=== PATIENT | female | born 1975 | race Caucasian/White ===

== ENCOUNTER 2017-10-30 17:00 | Outpatient (CLI) | payer OTHER | END 2017-10-30 17:01 | disposition home or self-care (01) | LOC: LAB 17:00 | PROVIDERS: ATTEND Family Medicine | DX: R19.7 Diarrhea, unspecified (principal) | CPT/HCPCS: 81599; 83630; 87045; 87046; 87177; 87209; 87493 ==

== ENCOUNTER 2022-09-07 10:54 | Outpatient (CLI) | payer OTHER ==
--- NOTE | 2022-09-08 12:43 | Mammography Report ---
UNILATERAL RIGHT DIGITAL DIAGNOSTIC MAMMOGRAM 3D/2D WITH SPOT COMPRESSION: 09/07/2022 CLINICAL: Patient returns today to evaluate multiple focal asymmetries in the right breast. Comparison is made to exams dated: 11/11/2014 mammogram and 08/19/2022 mammogram - [facility]. There are scattered areas of fibroglandular density in the right breast (category b / 25%-50% glandul ar tissue). There is an oval asymmetry with a circumscribed margin in the right breast at 7 o'clock anterior dept h. There also is an asymmetry with a circumscribed margin in the right breast central to the nipple midd le depth. Additionally, there is a possible asymmetry in the right breast at 6 o'clock posterior depth. This i s not seen in additional views. No other significant masses or calcifications are seen in the breast. IMPRESSION: INCOMPLETE: NEEDS ADDITIONAL IMAGING EVALUATION The oval asymmetry in the right breast at 7 o'clock anterior depth resembles a cyst and is indetermin ate. The asymmetry in the right breast central to the nipple middle depth resembles a cyst and is indeterm inate. A targeted ultrasound is recommended and will immediately follow. The possible asymmetry in the right breast at 6 o'clock posterior depth is consistent with fibrogland ular tissue and is benign. Based on the Tyrer Cuzick model (a risk assessment model) the patients lifetime risk is 8.1% and her 10 year risk is 1.7%. According to the ACR, ACS, and NCCN guidelines, an annual breast MRI exam yanely g with mammogram is recommended if the patients lifetime risk is 20% or greater. This exam was interpreted at Station ID: [id number]. NOTE: For mammograms, a report in lay terms will be sent to the patient. Approximately 15% of breast malignancies will not be visualized mammographically. In the management of a palpable breast mass, a negative mammogram must not discourage biopsy of a clinically suspicious lesion. Electronically Signed By: Tom Osorio M.D. [facility] [place]/:09/07/2022 11:46:16 ACR BI-RADS Category 0: Incomplete 3340F PARENCHYMAL PATTERN: (A) - The breast(s) demonstrate(s) scattered fibroglandular densities. BI-RADS CATEGORY: (0) - 0 Ultrasound [id number] Immediate follow-up LATERALITY: (B)
--- NOTE | 2022-09-08 12:43 | Ultrasound Report ---
LIMITED ULTRASOUND OF RIGHT BREAST: 09/07/2022 CLINICAL: Patient returns today to evaluate focal asymmetries in the right breast. Comparison is made to exams dated: 09/07/2022 mammogram, 08/19/2022 mammogram, and 11/11/2014 mammogram - [facility]. Color flow and real-time ultrasound of the right breast 6-7 o'clock, and retroareolar regions were pe rformed. Parsons scale images of the real-time examination were reviewed. There is a 0.8 cm x 0.6 cm x 0.3 cm oval cyst with a septated internal wall in the right breast centr al to the nipple 6 o'clock posterior depth. This oval cyst is hypoechoic. This correlates with mamm ography findings. Color flow imaging demonstrates that there is no vascularity present. There also is a benign 1.6 cm simple cyst in the right breast at 7 o'clock anterior depth 4 cm from t he nipple. This correlates with mammography findings. IMPRESSION: PROBABLY BENIGN 1) The 0.8 cm cyst in the right breast at central to the nipple 6 o'clock posterior depth is consiste nt with a complicated cyst and is probably benign. -A follow-up ultrasound in 6 months is recommended. 2) The 1.6 cm simple cyst in the right breast at 7 o'clock anterior depth is benign. Exam findings were conveyed to the patient. This exam was interpreted at Station ID: [id number]. Electronically Signed By: Tom Osorio M.D. [facility]/:09/07/2022 12:16:02 Ultrasound BI-RADS: 3 Probably benign BI-RADS CATEGORY: (3) - 3 Ultrasound [id number] 6 month follow-up LATERALITY: (B)
== END 2022-09-07 10:55 | disposition home or self-care (01) ==
LOC: DI 10:54
PROVIDERS: ATTEND Nurse Practitioner Family
DX: R92.8 Other abnormal and inconclusive findings on diagnostic imaging of breast (principal); N60.01 Solitary cyst of right breast

== ENCOUNTER 2022-10-27 07:44 | Emergency (ER) | payer OTHER ==
[2022-10-27] MEDS ORDERED: HYDROmorphone 1 MG/ML CARPUJECT IVP STA ×3 (08:03→09:32)
[2022-10-27] MEDS ORDERED: ONDANSETRON 4 MG/2 ML VIAL IVP STA (08:03)
[2022-10-27] MEDS ORDERED: SODIUM CHLORIDE 0.9% 1,000 ML IV STA (08:03)
--- NOTE | 2022-10-27 08:04 | ED Physician Documentation ---
PD HPI ABD PAIN - Stated complaint Stated Complaint: VOMITING/ABD PX - Chief complaint Chief Complaint: Abd Pain - History obtained from History obtained from: Patient - Additional information Additional information: 47-year-old woman with history of Crohn's, previously on Lialda but currently not on any meds for that. She has a history of an colonic resection with ileocolonic anastomosis in 2000. She also has had 4 C-sections, tubal ligation and has known incidental gallstones. She had a small bowel obstruction in 2010. She started develop central and upper abdominal pain last night associated with multiple episodes of vomiting. She has had some "ribbony" stools but no significant bowel output since this started. Denies fevers. 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 - Present Medications Home Medications: Ambulatory Orders Medication Instructions Recorded Confirmed No Known Home Medications 10/27/22 10/27/22 - Allergies Allergies/Adverse Reactions: Allergies Allergy/AdvReac Type Severity Reaction Status Date / Time morphine AdvReac Itching Verified 10/27/22 07:49 oxycodone HCl * AdvReac Dizziness Verified 10/27/22 07:49 [From OxyContin] PD ED PE NORMAL - Vitals Vital signs reviewed: Yes - General General: Alert and oriented X 3, Other (She appears quite uncomfortable) - Cardiac Cardiac: RRR, No murmur - Respiratory Respiratory: No respiratory distress, Clear bilaterally - Abdomen Abdomen: Other (Absent bowel sounds, modest diffuse tenderness without surgical signs) - Derm Derm: No rash - Neuro Neuro: Alert and oriented X 3, Normal speech Results - Vitals Vitals: Vital Signs - 24 hr 10/27/22 10/27/22 10/27/22 07:50 08:15 10:24 Temperature 36.4 C L 36.7 C Heart Rate 78 83 85 Respiratory 24 22 16 Rate Blood Pressure 127/55 L 104/56 L 121/82 H O2 Saturation 95 94 98 10/27/22 10/27/22 10/27/22 12:09 12:33 14:20 Temperature Heart Rate 88 Respiratory 15 20 16 Rate Blood Pressure 114/71 O2 Saturation 100 10/27/22 10/27/22 10/27/22 14:25 15:32 16:30 Temperature Heart Rate 78 78 Respiratory 16 16 16 Rate Blood Pressure 103/67 111/72 O2 Saturation 99 99 10/27/22 10/27/22 10/27/22 16:37 16:58 19:33 Temperature 37.1 C Heart Rate 72 Respiratory 16 16 16 Rate Blood Pressure 104/68 O2 Saturation 98 Oxygen O2 Source Room air - Labs Labs: Laboratory Tests 10/27/22 10/27/22 10/27/22 08:00 08:00 12:06 WBC 22.8 H RBC 4.87 Hgb 14.7 Hct 44.1 MCV 90.6 MCH 30.2 MCHC 33.3 RDW 13.4 Plt Count 286 MPV 12.2 H Neut # (Auto) 19.2 H Lymph # (Auto) 1.9 [place] # (Auto) 1.6 H Eos # (Auto) 0.0 Baso # (Auto) 0.1 Absolute Nucleated RBC 0.00 Nucleated RBC % 0.0 Manual Slide Review Indicated RBC Morph Micro Appear 1+ ANISOCYTOSIS Sodium 137 Potassium 4.1 Chloride 106 Carbon Dioxide 23 Anion Gap 8.0 BUN 11 Creatinine 0.7 Estimated GFR (MDRD) 89 Glucose 152 H Calcium 9.3 Total Bilirubin 0.7 AST 18 ALT 18 Alkaline Phosphatase 77 Total Protein 7.8 Albumin 4.0 Globulin 3.8 Albumin/Globulin Ratio 1.1 Lipase 32 Urine Color Urine Clarity Urine pH Ur Specific [place] Urine Protein Urine Glucose (UA) Urine Ketones Urine Occult Blood Urine Nitrite Urine Bilirubin Urine Urobilinogen Ur Leukocyte Esterase Ur Microscopic Review Urine Culture Comments Urine HCG, Qual SARS-CoV-2 (PCR) NOT DETECTED 10/27/22 14:20 WBC RBC Hgb Hct MCV MCH MCHC RDW Plt Count MPV Neut # (Auto) Lymph # (Auto) [place] # (Auto) Eos # (Auto) Baso # (Auto) Absolute Nucleated RBC Nucleated RBC % Manual Slide Review RBC Morph Micro Appear Sodium Potassium Chloride Carbon Dioxide Anion Gap BUN Creatinine Estimated GFR (MDRD) Glucose Calcium Total Bilirubin AST ALT Alkaline Phosphatase Total Protein Albumin Globulin Albumin/Globulin Ratio Lipase Urine Color YELLOW Urine Clarity CLEAR Urine pH 5.5 Ur Specific [place] 1.015 Urine Protein NEGATIVE Urine Glucose (UA) NEGATIVE Urine Ketones 15 H Urine Occult Blood TRACE-INTA Urine Nitrite NEGATIVE Urine Bilirubin NEGATIVE Urine Urobilinogen 0.2 (NORMAL) Ur Leukocyte Esterase NEGATIVE Ur Microscopic Review NOT INDICATED Urine Culture Comments NOT INDICATED Urine HCG, Qual NEGATIVE SARS-CoV-2 (PCR) - Rads (name of study) CT abdomen pelvis demonstrates small bowel obstruction and cholelithiasis. Transition not clearly identified. Relevant Findings:: Final report received, EMP independent interpretation of test PD Medical Decision Making - ED course Complexity details: reviewed results (CBC reviewed and notable for a white count of 22,000 with left shift. CMP reviewed and only notable for mild hyperglycemia at 152. CT as above.), considered differential (Most consistent with small bowel obstruction based on exam and known strictures and adhesions, but appendicitis, cholelithiasis, or other surgical emergency is of course on the differential.) ED course: 47-year-old woman with Crohn's presents with signs and symptoms consistent with small bowel obstruction proven on CT. She required a fair amount of medication for pain control and was kept NPO. Looking at the size of her gastrum and lack of active vomiting in the department I do not think she acutely needs an NG tube. Case discussed by phone with Dr. Nithya Ngo, our on-call surgeon at 9:50 AM who recommends transfer to a facility capable of GI consultation given her active Crohn's. Subsequently we were notified by [facility] that they have no open beds. We called [facility] and they are optimistic that they will be able to take her in transfer. Subsequently I spoke with Dr. Pearson at [facility]. They do not have beds at their usual facilities, [facility] or [facility] and he was okay with her going to [facility]. Patient had a specific concern about interhospital transport costs but Dr. Pearson did not think of any reason it should not be covered since she is going to higher level of care. I spoke with MARY CARMEN Maza, general surgery at [facility] and presented the case. Subsequently she spoke with her attending Dr. Guadalupe and their GI Dr. Bravo who did not feel she needed to be transferred as tx is simply bowl rest, gastrograffin challenge. Subsequently I was able to discuss the case by phone with Dr. Ngo again who notes that the patient would be expected to be in this critical access hospital for greater than 96 hours and asked that I consult [facility] again. I spoke with MARY CARMEN Maza again regarding the 96-hour rule and she said it was okay to send the patient to [facility] but under the care of the hospitalist. Update 5:30 PM, patient is pain-free. Still does not have bowel sounds. Discussed again with Dr. Ngo who recommends scheduled dosing of IV glucocorticoids and Cipro and Flagyl which were ordered. If patient were here tomorrow a Gastrografin challenge would be appropriate. S/O to overnight EDMD at pending hopeful acceptance by tertiary facility. Departure - Departure Disposition: 02 Transfer Acute Care Hosp Clinical Impression: SBO (small bowel obstruction) Crohn disease Qualifiers: Gastrointestinal tract location: small intestine Digestive disease complication type: with intestinal obstruction Qualified Code(s): K50.012 - Crohn's disease of small intestine with intestinal obstruction Condition: Serious
[2022-10-27 08:06] LABS: BASOPHILS # (AUTO) 0.1 10^3/uL (0.0-0.1); BASOPHILS % (AUTO) 0.3 %; HCT - HEMATOCRIT 44.1 % (37.0-47.0); HGB - HEMOGLOBIN 14.7 g/dL (12.0-16.0); LYMPHOCYTES # (AUTO) 1.9 10^3/uL (1.5-3.5); LYMPHOCYTES % (AUTO) 8.2 %; MEAN CORPUSCULAR HEMOGLOBIN 30.2 pg (27.0-31.0); MEAN CORPUSCULAR HGB CONC 33.3 g/dL (32.0-36.0); MEAN CORPUSCULAR VOLUME 90.6 fL (81.0-99.0); MEAN PLATELET VOLUME 12.2 fL (7.9-10.8); MONOCYTES # (AUTO) 1.6 10^3/uL (0.0-1.0); MONOCYTES % (AUTO) 6.9 %; NEUTROPHILS # (AUTO) 19.2 10^3/uL (1.5-6.6); NEUTROPHILS % (AUTO) 84.1 %; PLT - PLATELET COUNT 286 10^3/uL (130-450); RED BLOOD COUNT 4.87 10^6/uL (4.20-5.40); RED CELL DISTRIBUTION WIDTH 13.4 % (12.0-15.0); WHITE BLOOD COUNT 22.8 x10^3/uL (4.8-10.8)
[2022-10-27 08:08] LABS: SLIDE REVIEW? Indicated
[2022-10-27 08:20] LABS: ALBUMIN/GLOBULIN RATIO 1.1 (1.0-2.2); BILIRUBIN,TOTAL 0.7 mg/dL (0.2-1.0); CALCIUM 9.3 mg/dL (8.5-10.3); CREATININE 0.7 mg/dL (0.4-1.0); POTASSIUM 4.1 mmol/L (3.5-5.0); TOTAL PROTEIN 7.8 g/dL (6.7-8.2)
[2022-10-27] MEDS ORDERED: iohexoL-300 100 ML VIAL ONE (08:28)
[2022-10-27 08:33] LABS: RBC MORPHOLOGY (MULTIPLE) 1+ ANISOCYTOSIS (NORMAL)
[2022-10-27] MEDS ORDERED: iohexoL-300 100 ML VIAL IVP ONE (09:13)
--- NOTE | 2022-10-27 09:13 | CT Report ---
PROCEDURE: ABDOMEN/PELVIS W INDICATIONS: iv only, abd pain, ?sbo CONTRAST: 100ml Omnipaque 300 TECHNIQUE: After the administration of IV contrast, 5 mm thick sections acquired from the diaphragms to the symp hysis. 5 mm thick coronal and sagittal reformats were acquired. For radiation dose reduction, the f ollowing was used: automated exposure control, adjustment of mA and/or kV according to patient size. COMPARISON: None. FINDINGS: Image quality: Excellent. ABDOMEN: Lung bases: Dependent atelectasis in posterior aspect of bilateral lung bases are seen. Heart size is normal. Solid organs: Liver and spleen are normal in size and enhancement. Gallbladder contains a calcified stone. No gross gallbladder wall thickening or pericholecystic fluid. Biliary system is non dilated . Pancreas enhances normally. No adrenal nodules. Kidneys demonstrate normal size and enhancement, without hydronephrosis. Peritoneum and bowel: Postsurgical changes are seen in right side of abdomen with multiple surgical c lips suggest clinical correlation. Fluid distended small bowel loops are noted throughout abdomen wit h a few air-fluid levels. Sonographic transition is not definitively identified. Colon loops are most ly decompressed. No abscess collection. No free fluid of free air. Nodes and vessels: No retroperitoneal or mesenteric adenopathy by size criteria. Aorta and inferior vena cava are normal in size. Miscellaneous: No ventral hernias. PELVIS: Genitourinary: Bladder wall thickness is normal. Miscellaneous: No inguinal hernias or adenopathy. Intrauterine device is seen in its central endome trial location. No gross abnormality is seen in bilateral adnexa. Bones: No suspicious bony lesions. No vertebral body compression fractures. IMPRESSION: 1. Finding is consistent with moderate to high-grade distal small bowel obstruction with zone of marquez sition not definitively identified and may be due to adhesion. No significant abnormal bowel wall thi ckening. No abscess collection. No free fluid of free air. 2. Postsurgical changes in right side of abdomen suggest clinical correlation. 3. Cholelithiasis without CT evidence of acute cholecystitis. Reviewed by: Omar Roberts MD on 10/27/2022 9:12 AM PDT Approved by: Omar Roberts MD on 10/27/2022 9:12 AM PDT Station ID: [id number]
[2022-10-27] MEDS ORDERED: METOCLOPRAMIDE 10 MG/2 ML VIAL IVP STA (09:32)
[2022-10-27] MEDS ORDERED: LACTATED RINGERS 1,000 ML IV STA ×2 (09:32→17:29)
[2022-10-27] MEDS ORDERED: methylPREDNISolone SUCCINATE 125 MG/2 ML VIAL IVP STA (09:32)
[2022-10-27 14:51] LABS: BILIRUBIN,URINE NEGATIVE (NEGATIVE); GLUCOSE, URINE (UA) NEGATIVE (NEGATIVE); KETONES,URINE (UA) 15 mg/dL (NEGATIVE); LEUKOCYTE ESTERASE, URINE NEGATIVE (NEGATIVE); NITRITE,URINE NEGATIVE (NEGATIVE); OCCULT BLOOD,URINE TRACE-INTA (NEGATIVE); PH,URINE 5.5 PH (5.0-7.5); PROTEIN,URINE NEGATIVE (NEGATIVE); UROBILINOGEN,URINE 0.2 (NORMAL) E.U./dL (NORMAL)
[2022-10-27 14:53] LABS: CLARITY,URINE CLEAR (CLEAR); HCG UR QUAL NEGATIVE
--- NOTE | 2022-10-27 20:38 | CONSULTATION NOTE ---
Referring Provider Name of Referring Provider:: ED provider (Deepthi) Consult Date: 10/27/22 Chief Complaint - Chief Complaint Chief Complaint: abdominal pain History of Present Illness - Admitted From Admitted From:: n/a - History Obtained From Records Reviewed: yes History obtained from: patient, chart, ED provider - History of Present Illness HPI Comment/Other: This is a 47-year-old with a history of Crohn's and previous ileocecectomy. She was on mesalamine for many years, but has not been taking it for the last four years except for about six months in 2019. She had a previous small bowel obstruction which resolved with conservative management. For the last several months, she has felt like "something is going on" in her abdomen and has scheduled an appointment with her GI. Her last CE was more than five years ago, and she did have some polyps at that time.She also reports that she was told that she had "some narrowing" at the time of that study though she does not know where the narrowing was and states no treatment was performed for the narrowing. Last night, the patient developed sharp, colicky, diffuse abdominal pain associated with nausea and multiple bouts of non bloody vomiting. She did have a small bowel movement this morning. She denies any blood in her stool. She denies any fevers or chills. This evening, she is feeling a little better. She denies nausea and has not vomited since presentation. Her pain is improving some. She has not had a bowel movement. 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, Tubal ligation Meds/Allgy - Home Medications Home Medications: Ambulatory Orders Medication Instructions Recorded Confirmed No Known Home Medications 10/27/22 10/27/22 - Allergies Allergies/Adverse Reactions: Allergies Allergy/AdvReac Type Severity Reaction Status Date / Time morphine AdvReac Itching Verified 10/27/22 07:49 oxycodone HCl * AdvReac Dizziness Verified 10/27/22 07:49 [From OxyContin] Review of Systems - Constitutional Constitutional: reports: Other (A complete 10 point review of symptoms is otherwise negative except for that noted in HPI and PMH.) Exam - Vital Signs Vital Signs: Vital Signs x48h Temp Pulse Resp BP Pulse Ox 10/27/22 19:33 37.1 C 72 16 104/68 98 10/27/22 16:58 16 10/27/22 16:37 16 10/27/22 16:30 78 16 111/72 99 10/27/22 15:32 16 10/27/22 14:25 78 16 103/67 99 10/27/22 14:20 16 - Physical Exam Comments/Other: GEN: No acute distress, appears younger than stated age, alert and oriented HEENT: NCAT, MMM, EOMI NEURO: CN II-XII grossly intact, no obvious focal deficits CV: RRR, no murmer appreciated PULM: Nonlabored on room air ABD: soft, with mild diffuse tenderness to palpation and mild distention, no rebound or guarding CIRCULATORY: no clubbing, cyanosis, or edema SKIN: no lesions appreciated LYMPH: no obvious lymphadenopathy MSK: 4/4 strength in all extremities PSYCH: Affect is appropriate Conclusion and Plan - Lab Results Laboratory Results 10/27/22 14:20: Urine Color YELLOW, Urine Clarity CLEAR, Urine pH 5.5, Ur Specific [place] 1.015, Urine Protein NEGATIVE, Urine Glucose (UA) NEGATIVE, Urine Ketones 15 H, Urine Occult Blood TRACE-INTA, Urine Nitrite NEGATIVE, Urine Bilirubin NEGATIVE, Urine Urobilinogen 0.2 (NORMAL), Ur Leukocyte Esterase NEGATIVE, Ur Microscopic Review NOT INDICATED, Urine Culture Comments NOT INDICATED, Urine HCG, Qual NEGATIVE 10/27/22 12:06: SARS-CoV-2 (PCR) NOT DETECTED 10/27/22 08:00: Sodium 137, Potassium 4.1, Chloride 106, Carbon Dioxide 23, Anion Gap 8.0, BUN 11, Creatinine 0.7, Estimated GFR (MDRD) 89, Glucose 152 H, Calcium 9.3, Total Bilirubin 0.7, AST 18, ALT 18, Alkaline Phosphatase 77, Total Protein 7.8, Albumin 4.0, Globulin 3.8, Albumin/Globulin Ratio 1.1, Lipase 32 10/27/22 08:00: WBC 22.8 H, RBC 4.87, Hgb 14.7, Hct 44.1, MCV 90.6, MCH 30.2, MCHC 33.3, RDW 13.4, Plt Count 286, MPV 12.2 H, Neut # (Auto) 19.2 H, Lymph # (Auto) 1.9, [place] # (Auto) 1.6 H, Eos # (Auto) 0.0, Baso # (Auto) 0.1, Absolute Nucleated RBC 0.00, Nucleated RBC % 0.0, Manual Slide Review Indicated, RBC Morph Micro Appear 1+ ANISOCYTOSIS - Diagnostic Imaging Results Diagnostic Imaging Results: positive: Final report reviewed Diagnostic Imaging Results Comments: CT scan consistent with a small bowel obstruction. There are no signs of free fluid or free air. There is no obvious transition point. I personally reviewed the images and report from the study. - Consultation Note Consultation Note: This is a 47-year-old female with: 1. Small bowel obstruction, likely secondary to Crohn's exacerbation The patient is not on any medication for her Crohn's at this time She does not have a clear transition point. I do not medically manage Crohn's patients but do feel this patient would benefit from the input of the fur glosser which is not available at our facility. I have also concerned the patient may have a prolonged hospital stay with a Crohn's exacerbation. For these reasons, I recommend transfer to a higher level of care. While the patient is in our emergency department awaiting transfer, I agree with the plan for IV steroids and antibiotics. The patient's symptoms do appear somewhat improved this evening compared to this morning. She has not required an NG tube. If she continues to improve overnight, I recommend a Gastrografin challenge tomorrow morning. If this demonstrates no obstruction, I recommend discharge with oral steroid taper and oral antibiotics for total of 10 days. I also strongly recommend close follow- up with her fur glosser to determine what if any maintenance medication she should be on. Thank you for consulting me in the care of this patient. I will continue to follow until the patient is discharged or transferred.
[2022-10-27] MEDS: CIPROFLOXACIN 400 MG/200 ML 400 MG/200 ML BAG IV SCH (21:10)
[2022-10-27] MEDS: HYDROmorphone 1 MG/ML CARPUJECT IVP PRN (21:48)
[2022-10-27] MEDS: metroNIDAZOLE 500 MG/100 ML 500 MG/100 ML BAG IV SCH (22:11)
[2022-10-28] MEDS ORDERED: SODIUM CHLORIDE 0.9% 1,000 ML IV STA (02:19)
[2022-10-28] MEDS ORDERED: ONDANSETRON 4 MG/2 ML VIAL IVP STA (02:44)
[2022-10-28] MEDS: HYDROmorphone 1 MG/ML CARPUJECT IVP PRN ×2 (02:51→06:28)
[2022-10-28] MEDS: metroNIDAZOLE 500 MG/100 ML 500 MG/100 ML BAG IV SCH ×2 (05:35→12:55)
--- NOTE | 2022-10-28 07:37 | PROVIDER PROGRESS NOTE ---
Subjective - Other Other Information/Narrative: Patient states she's had a "migraine headache" most of the night which has caused some nausea and two episodes of non bloody vomiting. Her abdominal pain persists, but continues to be improved from presentation. She is passing some flatus. No f/c, CP, SOA. Objective - Patient Data Reviewed Vital Signs: Yes Vital Signs: Vital Signs x48h Temp Pulse Resp BP Pulse Ox 10/28/22 07:00 83 16 111/73 99 10/28/22 05:00 90 16 98/63 97 10/28/22 03:34 37.1 C 92 16 101/59 L 94 10/28/22 02:22 91 16 111/67 99 10/28/22 00:08 15 Weight: Weight 10/26/22 10/27/22 10/28/22 23:59 23:59 23:59 Weight (kg) 88.451 kg Intake & Output: Intake and Output Totals x24h 10/26/22 10/27/22 10/28/22 23:59 23:59 23:59 Intake Total 3300 100 Balance 3300 100 - Lab Results Lab Results: 10/27/22 08:00 10/27/22 08:00 Other Lab Results: Lab Results x24hrs 10/27/22 10/27/22 10/27/22 Range/Units 14:20 12:06 08:00 WBC (4.8-10.8) x10^3/uL RBC (4.20-5.40) 10^6/uL Hgb (12.0-16.0) g/dL Hct (37.0-47.0) % MCV (81.0-99.0) fL MCH (27.0-31.0) pg MCHC (32.0-36.0) g/dL RDW (12.0-15.0) % Plt Count (130-450) 10^3/uL MPV (7.9-10.8) fL Neut # (Auto) (1.5-6.6) 10^3/uL Lymph # (Auto) (1.5-3.5) 10^3/uL Grimes # (Auto) (0.0-1.0) 10^3/uL Eos # (Auto) (0.0-0.7) 10^3/uL Baso # (Auto) (0.0-0.1) 10^3/uL Absolute Nucleated RBC x10^3/uL Nucleated RBC % /100WBC Manual Slide Review RBC Morph Micro Appear (NORMAL) Sodium 137 (135-145) mmol/L Potassium 4.1 (3.5-5.0) mmol/L Chloride 106 (101-111) mmol/L Carbon Dioxide 23 (21-32) mmol/L Anion Gap 8.0 (6-13) BUN 11 (6-20) mg/dL Creatinine 0.7 (0.4-1.0) mg/dL Estimated GFR (MDRD) 89 (>89) Glucose 152 H (70-100) mg/dL Calcium 9.3 (8.5-10.3) mg/dL Total Bilirubin 0.7 (0.2-1.0) mg/dL AST 18 (10-42) IU/L ALT 18 (10-60) IU/L Alkaline Phosphatase 77 (42-121) IU/L Total Protein 7.8 (6.7-8.2) g/dL Albumin 4.0 (3.2-5.5) g/dL Globulin 3.8 (2.1-4.2) g/dL Albumin/Globulin Ratio 1.1 (1.0-2.2) Lipase 32 (22-51) U/L Urine Color YELLOW Urine Clarity CLEAR (CLEAR) Urine pH 5.5 (5.0-7.5) PH Ur Specific [place] 1.015 (1.002-1.030) Urine Protein NEGATIVE (NEGATIVE) mg/dL Urine Glucose (UA) NEGATIVE (NEGATIVE) mg/dL Urine Ketones 15 H (NEGATIVE) mg/dL Urine Occult Blood TRACE-INTA (NEGATIVE) Urine Nitrite NEGATIVE (NEGATIVE) Urine Bilirubin NEGATIVE (NEGATIVE) Urine Urobilinogen 0.2 (NORMAL) (NORMAL) E.U./dL Ur Leukocyte Esterase NEGATIVE (NEGATIVE) Ur Microscopic Review NOT INDICATED Urine Culture Comments NOT INDICATED Urine HCG, Qual NEGATIVE SARS-CoV-2 (PCR) NOT DETECTED 10/27/22 Range/Units 08:00 WBC 22.8 H (4.8-10.8) x10^3/uL RBC 4.87 (4.20-5.40) 10^6/uL Hgb 14.7 (12.0-16.0) g/dL Hct 44.1 (37.0-47.0) % MCV 90.6 (81.0-99.0) fL MCH 30.2 (27.0-31.0) pg MCHC 33.3 (32.0-36.0) g/dL RDW 13.4 (12.0-15.0) % Plt Count 286 (130-450) 10^3/uL MPV 12.2 H (7.9-10.8) fL Neut # (Auto) 19.2 H (1.5-6.6) 10^3/uL Lymph # (Auto) 1.9 (1.5-3.5) 10^3/uL [place] # (Auto) 1.6 H (0.0-1.0) 10^3/uL Eos # (Auto) 0.0 (0.0-0.7) 10^3/uL Baso # (Auto) 0.1 (0.0-0.1) 10^3/uL Absolute Nucleated RBC 0.00 x10^3/uL Nucleated RBC % 0.0 /100WBC Manual Slide Review Indicated RBC Morph Micro Appear 1+ ANISOCYTOSIS (NORMAL) Sodium (135-145) mmol/L Potassium (3.5-5.0) mmol/L Chloride (101-111) mmol/L Carbon Dioxide (21-32) mmol/L Anion Gap (6-13) BUN (6-20) mg/dL Creatinine (0.4-1.0) mg/dL Estimated GFR (MDRD) (>89) Glucose (70-100) mg/dL Calcium (8.5-10.3) mg/dL Total Bilirubin (0.2-1.0) mg/dL AST (10-42) IU/L ALT (10-60) IU/L Alkaline Phosphatase (42-121) IU/L Total Protein (6.7-8.2) g/dL Albumin (3.2-5.5) g/dL Globulin (2.1-4.2) g/dL Albumin/Globulin Ratio (1.0-2.2) Lipase (22-51) U/L Urine Color Urine Clarity (CLEAR) Urine pH (5.0-7.5) PH Ur Specific [place] (1.002-1.030) Urine Protein (NEGATIVE) mg/dL Urine Glucose (UA) (NEGATIVE) mg/dL Urine Ketones (NEGATIVE) mg/dL Urine Occult Blood (NEGATIVE) Urine Nitrite (NEGATIVE) Urine Bilirubin (NEGATIVE) Urine Urobilinogen (NORMAL) E.U./dL Ur Leukocyte Esterase (NEGATIVE) Ur Microscopic Review Urine Culture Comments Urine HCG, Qual SARS-CoV-2 (PCR) - Imaging Results Imaging Results Comments: SBFT pending this AM - Current Medications Current Medications: Current Medications Generic Name Dose Route Start Last Admin Trade Name Freq PRN Reason Stop Dose Admin Hydromorphone HCl 1 mg 10/27/22 10:07 10/28/22 06:28 Hydromorphone 1 Mg/Ml Carpuject IVP 1 mg Q2H PRN Administration PAIN 5-7 Metronidazole 500 mg in 100 mls @ 100 mls/hr 10/27/22 22:00 10/28/22 06:32 Flagyl 500 Mg/100 Ml IV Infused TID KALANI Infusion Ciprofloxacin 400 mg in 200 mls @ 200 mls/hr 10/27/22 21:00 10/27/22 22:16 Cipro 400 Mg/200 Ml IV Infused BID KALANI Infusion Sodium Chloride 1,000 mls @ 150 mls/hr 10/28/22 02:19 10/28/22 02:28 Normal Saline 0.9% IV 10/28/22 08:58 150 mls/hr .Q6H40M STA Administration - Physical Exam General Appearance: positive: No acute distress, Alert Eyes Bilateral: positive: PERRL, EOMI ENT: positive: No signs of dehydration Neck: positive: Trachea midline Respiratory: positive: No respiratory distress Cardiovascular: positive: Regular rate & rhythm Abdomen: positive: Tenderness (diffuse, mild, no area of severe pain). negative: Nml bowel sounds (decreased), No distention (mildly distended), Guarding, Rebound Skin: positive: Color nml, No rash Extremities: positive: Non-tender, Full ROM Neurologic/Psychiatric: positive: Oriented x3 Impression/Plan - Problem List Problem List: This is a 47-year-old female with: 1. Small bowel obstruction, likely secondary to Crohn's exacerbation pain somewhat improved - n/v overnight, patient believes this is related to [place], rather than abdominal pain/obstruction - I have ordered a SBFT for this AM. If this demonstrates resolution of obstruction, recommend transition to PO steroids, abx and slow advancement of diet. Recommend very close follow up with GI. If she has significant gastric di stension on XR this AM, she may benefit from placement of an NG tube. - recommend repeating lab this AM - recommend continued IV steroids, abx for presumed crohn's exacerbation Thank you for consulting me in the care of this patient. I will continue to follow until the patient is discharged or transferred.
[2022-10-28] MEDS ORDERED: METOCLOPRAMIDE 10 MG/2 ML VIAL IVP STA (07:49)
[2022-10-28] MEDS ORDERED: DIATR MEGLU/DIATRIZOATE SODIUM 120 ML BOTTLE ONE (08:00)
[2022-10-28 08:03] LABS: BASOPHILS % (AUTO) 0.1 %; HCT - HEMATOCRIT 36.3 % (37.0-47.0); HGB - HEMOGLOBIN 12.1 g/dL (12.0-16.0); LYMPHOCYTES % (AUTO) 11.3 %; MEAN CORPUSCULAR HEMOGLOBIN 31.3 pg (27.0-31.0); MEAN CORPUSCULAR HGB CONC 33.3 g/dL (32.0-36.0); MEAN PLATELET VOLUME 12.3 fL (7.9-10.8); MONOCYTES % (AUTO) 9.7 %; NEUTROPHILS % (AUTO) 78.6 %; PLT - PLATELET COUNT 216 10^3/uL (130-450); RED BLOOD COUNT 3.86 10^6/uL (4.20-5.40); RED CELL DISTRIBUTION WIDTH 14.2 % (12.0-15.0); WHITE BLOOD COUNT 15.4 x10^3/uL (4.8-10.8)
[2022-10-28 08:09] LABS: CALCIUM 8.1 mg/dL (8.5-10.3); CREATININE 0.7 mg/dL (0.4-1.0); MAGNESIUM 1.7 mg/dL (1.7-2.8); POTASSIUM 3.6 mmol/L (3.5-5.0)
[2022-10-28 08:10] LABS: ABNORMAL LYMPHS % (MANUAL) 0 %
[2022-10-28 08:34] LABS: BAND NEUTROPHILS % (MANUAL) 3 %; LYMPHOCYTES # (MANUAL) 1.8 10^3/uL (1.5-3.5); LYMPHOCYTES % (MANUAL) 12 %; MONOCYTES # (MANUAL) 0.6 10^3/uL (0.0-1.0); NEUTROPHILS # (MANUAL) 12.9 10^3/uL (1.5-6.6)
[2022-10-28 08:35] LABS: DIFFERENTIAL COMMENT MANUAL DIFFERENTIAL; PLATELET ESTIMATE, MANUAL NORMAL (130-450,000) (NORMAL); PLATELET MORPHOLOGY NORMAL APPEARANCE (NORMAL); RBC MORPHOLOGY (MULTIPLE) NORMAL APPEARANCE (NORMAL)
[2022-10-28] MEDS ORDERED: methylPREDNISolone SUCCINATE 125 MG/2 ML VIAL IVP SCH (09:00)
[2022-10-28] MEDS ORDERED: DIATR MEGLU/DIATRIZOATE SODIUM 120 ML BOTTLE PO ONE (09:21)
[2022-10-28] MEDS: CIPROFLOXACIN 400 MG/200 ML 400 MG/200 ML BAG IV SCH (09:23)
--- NOTE | 2022-10-28 11:05 | ED Physician Documentation ---
ED Addendum - Addendum Addendum: 10/28/22 11:02 The patient has continued fluids as well as pain medication and antibiotics ordered on a regular basis. She was seen by Dr. Riggins this morning who felt the patient was somewhat improving. Small bowel follow-through was ordered by surgery. The patient is tolerating small sips. She did take the oral contrast. The small bowel follow-through will likely take several hours to see if it progresses through. If it does show passage through and there is not a full obstruction, then we can try to transition to oral fluids and medications. Meanwhile I will continue with attempting transfer for gastroenterology. Otherwise we will continue treating medically for a Crohn's exacerbation. The feeling from yesterday was the patient was not appropriate for our facility and hence the need for transfer for specialty care. Otherwise if she improves enough then home therapy would be the same endpoint that gastroenterology would be looking for, i.e. tolerating orals and improving symptoms.
[2022-10-28] MEDS ORDERED: LACTATED RINGERS 1,000 ML IV STA (12:48)
--- NOTE | 2022-10-28 15:56 | XRAY Report ---
PROCEDURE: SBFT Challenge Panel INDICATIONS: SMALL BOWEL OBSTRUCTION, CROHN'S EXACERBATION COMPARISON: None FINDINGS: Gastrografin challenge was performed with images taken immediate, 15 minutes, 2 hours and 4 hours pos tingestion. At the 4 hour nica, contrast is noted within the colon and rectum. There is an overall no nobstructive gas pattern. IMPRESSION: Nonobstructed gas pattern with contrast in the rectum at 4 hours. Reviewed by: Tonia Marit MD on 10/28/2022 3:55 PM PDT Approved by: Tonia Marti MD on 10/28/2022 3:55 PM PDT Station ID: [id number]
[2022-10-28 17:02] VITALS: BP 113/72
--- NOTE | 2022-10-28 17:14 | ED Physician Documentation ---
ED Addendum - Addendum Addendum: 10/28/22 17:11 The patient is much more comfortable into late morning and afternoon. She is started on liquid intake and liquid diet and advance to pudding and Jell-O and is tolerating that well without any nausea or pain. She did have some loose stool output. Her small bowel follow-through was showing dye down to the cecum and below. Radiology reports the exam is now complete. Dr. Vazquez for surgery said if the patient was tolerating orals and doing well then from her perspective the patient could be discharged. At called and talked with the on-call quality system manager. Dr. Elena was not in the office but talk to the on-mechanical engineering draftsperson. He reviewed the patient's old office chart (it had been several years since had been there as she has been doing well). I reviewed the course and treatment with him. He advised for the patient to be discharged on prednisone 40 mg daily until follow-up. He will pass it to the front office and Dr. Elena for a sooner follow-up than the current appointment in November. Presumably next week. To continue with antibiotics for 4 to 5 days and also antiemetics as needed and's mall amount of pain medicine if needed. The patient should remain on a liquid diet for the next several days. The patient is comfortable with this plan and would like to go home at this time. I will send prescriptions to her preferred pharmacy. Disposition: The patient discharged home in stable condition Diagnoses: 1. Crohn's disease exacerbation 2. Small bowel obstruction 3. Diffuse abdominal pain
== END 2022-10-28 17:33 | disposition home or self-care (01) ==
LOC: ED 07:44
DX: K56.609 Unspecified intestinal obstruction, unspecified as to partial versus complete obstruction (principal); K50.012 Crohn's disease of small intestine with intestinal obstruction; G43.909 Migraine, unspecified, not intractable, without status migrainosus
CPT/HCPCS: 36415; 74177; 74250; 80048; 80053; 81003; 81025; 83690; 83735; 85025; 87635; 96365; 96366; 96375; 96376; 99285; J1170; J2765; J7120; Q9963; Q9967; 81001; 87086

== ENCOUNTER 2023-03-07 10:14 | Outpatient (CLI) | payer OTHER ==
--- NOTE | 2023-03-08 09:13 | Ultrasound Report ---
LIMITED ULTRASOUND OF RIGHT BREAST: 03/07/2023 CLINICAL: Patient returns for sonographic evaluation of right breast cyst. Comparison is made to exams dated: 09/07/2022 mammogram, 09/07/2022 ultrasound, 08/19/2022 mammogram, and 11/11/2014 mammogram - [facility]. Color flow ultrasound of the right breast 6-7 o'clock region was performed on the areas of interest. Parsons scale images of the real-time examination were reviewed. There is a stable benign 1.6 cm simple cyst in the right breast at 7 o'clock anterior depth 4 cm from the nipple. This correlates with mammography findings. There also is a stable benign oval cyst in the right breast at 6 o'clock middle depth. This oval cys t is anechoic. This correlates with mammography findings. Color flow imaging demonstrates that ther e is no vascularity present. IMPRESSION: BENIGN There is no sonographic evidence of malignancy. The stable 1.6 cm simple cyst in the right breast at 7 o'clock anterior depth is benign. The stable oval cyst in the right breast at 6 o'clock middle depth is consistent with a simple cyst a nd is benign. Return to annual mammogram screening schedule is recommended. This exam was interpreted at Station ID: [id number]. Electronically Signed By: Paige faith/:03/07/2023 11:21:11 Ultrasound BI-RADS: 2 Benign BI-RADS CATEGORY: (2) - 2 Mammogram [id number] return to screening LATERALITY: (B)
== END 2023-03-07 10:15 | disposition home or self-care (01) ==
LOC: DI 10:14
PROVIDERS: ATTEND Nurse Practitioner
DX: N60.11 Diffuse cystic mastopathy of right breast (principal)

== ENCOUNTER 2023-03-08 17:39 | Outpatient (CLI) | payer OTHER ==
--- NOTE | 2023-03-09 20:27 | Ultrasound Report ---
PROCEDURE: Pelvic w/Transvaginal INDICATIONS: PELVIC PAIN TECHNIQUE: Real-time scanning was performed of the pelvic organs, with image documentation. Additional endovagi nal scanning was necessary due to incomplete visualization of the adnexal and endometrial structures by transabdominal scanning. COMPARISON: CT abdomen/pelvis 10/27/2022 FINDINGS: Uterus: Uterus is retroflexed and normal in size at 9.6 x 3.7 x 5.6 cm. The myometrium is heterogen eous. The endometrium measures 8 mm in combined thickness. Intrauterine device is seen in expected position. A midline posterior intramural fibroid measures 1.1 x 1.1 x 1.0 cm. A right posterior intra mural and subserosal fibroid measures 4.2 x 4.4 x 4.7 cm. Ovaries: The right ovary measures 2.7 x 1.6 x 2.4 cm, with a calculated ovarian volume of 5.4 cc. T he left ovary measures 3.1 x 2.2 x 2.6 cm, with a calculated ovarian volume of 9.7 cc. The ovaries h ave a normal sonographic appearance. Less than 12 follicles can be seen in each ovary. No adnexal m asses are seen. No cystic lesions measuring greater than 3 cm. Other: No pathologic free abdominal or pelvic fluid. IMPRESSION: 1.Two uterine fibroids are seen, the larger of which measures 4.7 cm in maximum dimension. 2.Intrauterine device in expected position. Reviewed by: Rickie Barry MD on 03/09/2023 8:25 PM PDT Approved by: Rickie Barry MD on 03/09/2023 8:25 PM PDT Station ID: [id number]
== END 2023-03-08 17:40 | disposition home or self-care (01) ==
LOC: DI 17:39
PROVIDERS: ATTEND Nurse Practitioner
DX: D25.1 Intramural leiomyoma of uterus (principal); D25.2 Subserosal leiomyoma of uterus